=== PATIENT | female | born 1950 | race Caucasian/White ===

== ENCOUNTER 2018-01-08 17:41 | Emergency (ER) | payer OTHER ==
[~2018-01-08] VITALS: Ht 160 cm; Wt 89.4 kg
[2018-01-08] MEDS ORDERED: BROMFED DM COU118 ML PO (18:18)
[2018-01-08] MEDS ORDERED: NASONEX17 GM (18:18)
[2018-01-08] MEDS ORDERED: XYZAL5 MG PO (18:18)
== END 2018-01-08 18:56 | disposition home or self-care (01) ==
LOC: FSED 17:41
DX: J06.9 Acute upper respiratory infection, unspecified (principal); B34.9 Viral infection, unspecified; F17.200 Nicotine dependence, unspecified, uncomplicated; R53.83 Other fatigue; R53.81 Other malaise
CPT/HCPCS: 99283

== ENCOUNTER 2025-07-12 16:29 | Emergency (ER) | payer MEDICARE ==
[~2025-07-12 16:29] MED LIST: BROMFED DM COU118 ML PO; NASONEX17 GM; XYZAL5 MG PO
== END 2025-07-12 16:30 | disposition left against medical advice (07) ==
LOC: ER 16:30
DX: R69 Illness, unspecified (principal)

== ENCOUNTER 2025-07-12 18:47 | Emergency (ER) | payer MEDICARE ==
[~2025-07-12] VITALS: Ht 160 cm; Wt 89.4 kg
[2025-07-12 19:57] LABS: BASOPHILS % 1.2 % (0.0-1.0); EOSINOPHILS % 7.2 % (0.0-6.0); LYMPHOCYTES % 42.2 % (18.0-39.1); MONOCYTES % 25.3 % (4.4-11.3); NEUTROPHILS % 24.1 % (38.7-80.0); RED CELL DISTRIBUTION WIDTH 18.6 % (11.7-14.4)
[2025-07-12 20:15] LABS: EST GLOMERULAR FILTRATION RATE 100.0 ML/MIN (>=60)
[2025-07-13] MEDS: SODIUM CHLORIDE 0.9% 250ML 250 ML IV ONE ×2 (00:20)
[2025-07-13 02:30] VITALS: PULSE 65; RESP 18; TEMP 98.5
[2025-07-13 02:43] VITALS: BP 140/73; PULSE 65; RESP 18; TEMP 98.5; O2SAT 98
== END 2025-07-13 02:46 | disposition home or self-care (01) ==
LOC: ER 19:01
DX: D64.9 Anemia, unspecified (principal); K21.9 Gastro-esophageal reflux disease without esophagitis; Z96.653 Presence of artificial knee joint, bilateral
CPT/HCPCS: 36415; 80048; 85025; 86850; 86900; 86920; 99284; J7050; P9016